=== PATIENT | female | born 1990 | race Caucasian/White ===

== ENCOUNTER → 2019-02-22 | Outpatient (CLI) | payer BC ==
[2019-02-22 20:18] VITALS: BP 110/64; PULSE 77; RESP 16; TEMP 98.1
--- NOTE | 2019-02-23 06:53 | P.MSEPDOC ---
Presenting Problems - Arrival Data Date of Arrival on Unit: 02/22/19 Time of Arrival on Unit: 18:36 Mode of Transport: Ambulatory - Complaint OB-Reason for Admission/Chief Complaint: Pain Comment: pt states reason for visit is was at work at [employer] for about 2 hours when. she started having constant cramping pain center of abdomen. pain rates 7-8 when. standing and while lying down rates at 2-3 Medical History - Information : 1 Para: 0 Term: 0 : 0 Abortions: Spontaneous or Elective: 0 Number of Living Children: 0 - Gestational Age Gestational Age by JUANJO (wks/days): 20 Weeks and 2 Days Review of Systems - Review of Systems Constitutional: No problems Breast: No problems ENT: No problems Cardiovascular: No problems Respiratory: No problems Gastrointestinal: No problems Genitourinary: No problems Musculoskeletal: No problems Neurological: No problems Skin: No problems Vital Signs - Temperature Temperature: 98.1 F Temperature Source: Oral - Pulse Right Pulse Rate: 77 - Respirations Respiratory Rate: 16 Oxygen Delivery Method: Room Air - Blood Pressure Right Arm Blood Pressure: 110/64 Blood Pressure Mean: 79 Blood Pressure Source: Automatic Cuff Medical Screen Scoring (Pre) - Cervical Exam Dilation: 0 cm = 0 Membranes: Intact - Uterine Contractions Frequency: N/A Duration: N/A Intensity: N/A - Maternal Vital Signs Maternal Temperature: N/A Maternal Blood Pressure: N/A Signs of Preeclampsia: N/A Maternal Respirations: N/A - Maternal Trauma Maternal Trauma: N/A - Assessment - Baby A Baseline FHR: 145 Heart Rate - NICHD Category: Category I (Normal) = 0 Position: N/A Station: N/A - Total Score - Baby A Total Score - Baby A: 0 - Total Score - Baby B Total Score - Baby B: 0 - Total Score - Baby C Total Score - Baby C: 0 - Level of Risk - Baby A Level of Risk - Baby A: Low (0-5) - Level of Risk - Baby B Level of Risk - Baby B: Low (0-5) - Level of Risk - Baby C Level of Risk - Baby C: Low (0-5) - Pain Assessment Pain Location and Character: Lower, Medial, Abdomen Pain Scale Used: Numeric (1 - 10) Pain Intensity: 3 Pain Management Goal: 0 Pain Description: Aching Pain Radiation Location: none Pain Frequency: Constant Pain Duration: 4 Pain Duration Units: Hours Pain Behavior: None Exhibited Physician Notification (Pre) - Physician Notified Physician Notified Date: 02/22/19 - Notification Comment Comment: 194 Dr sorto updated pts reason for visit of cramping lower center abd. no. urinary symptoms. fhr 145 no decels noted. abd soft non tender to palpation. pt states. pain is bad when standing but better when see rests. order for vag exam and discharge if. cervix closed received. cervix closed upon exam Disposition - Disposition OB Disposition: Discharge to home Discharge Date: 02/22/19 Discharge Time: 19:00 I agree with the RN Medical Screening Exam: Yes Risk & Benefit of care provided described in d/c instruction: Yes Diagnosis: PAIN, UNSPECIFIED
== END | disposition home or self-care (01) ==
LOC: FBPOP 18:36
PROVIDERS: ATTEND Obstetrics & Gynecology
DX: O99.89 Other specified diseases and conditions complicating pregnancy, childbirth and the puerperium (principal); R52 Pain, unspecified; Z3A.20 20 weeks gestation of pregnancy
CPT/HCPCS: 99213

== ENCOUNTER 2019-07-10 16:59 | Inpatient (IN) | payer OTHER ==
--- NOTE | 2019-07-19 17:24 | P.HPOB ---
History of Present Illness H&P Date: 07/19/19 Chief Complaint: Intrauterine at 41 weeks Yolanda is a 28-year-old at 41 weeks 2 days' gestation arise for induction of labor. She originally had been scheduled for cervical ripening but her on last exam her cervix was dilated to 1 cm and 80% effaced. She is therefore scheduled for induction of labor for same. She is aware of risks of failure and potential need for section during an induction procedure. She has been having nonstress tests and ultrasounds past 40 weeks to verify that there is no concerns with the baby during this time. All questions were answered for and she is stable for this procedure. We'll have Pitocin augmentation of labor and anticipate amniotomy. Her Precis course otherwise was unremarkable and she is well this time. Past Medical History Past Medical History: No Reported History History of Any Multi-Drug Resistant Organisms: None Reported Past Surgical History: Adenoidectomy, Tonsillectomy Smoking Status: Current every day smoker Medications and Allergies Home Medications Medication Instructions Recorded Confirmed Type No Known Home Medications 02/22/19 02/22/19 History Allergies Allergy/AdvReac Type Severity Reaction Status Date / Time pseudoephedrine Allergy Rash/Hives Verified 02/22/19 19:39 Exam Osteopathic Statement: *. No significant issues noted on an osteopathic structural exam other than those noted in the History and Physical/Consult. - OBG Physical Exam Breast: both: normal (no masses) Abdomen: bowel sounds normal, no diffuse tenderness, no bruit present, no guarding noted, no hepatomegaly, no splenomegaly, no mass Vulva: both: normal Vagina: normal moisture, no discharge Cervix: no lesion, no discharge Uterus: normal size, normal contour Adnexa: both: normal Anus/Rectum: normal perianal skin, no rectal mass, no hemorrhoids, heme negative
[2019-07-20] MEDS ORDERED: METHYLERGONOVINE 0.2 MG/ML 1 ML AMP IM PRN (06:58)
[2019-07-20] MEDS ORDERED: TERBUTALINE 1 MG/ML VIAL SQ PRN (06:58)
[2019-07-20] MEDS ORDERED: OXYTOCIN 10 UNIT/ML 1 ML VIAL IM PRN (06:58)
[2019-07-20] MEDS ORDERED: CARBOPROST TROMETHAMINE 250 MCG/ML 1 ML AMP IM PRN (06:58)
[2019-07-20] MEDS ORDERED: LIDOCAINE 0.5% (PF) 5 MG/ML (50 ML SDV) SQ PRN (06:58)
[2019-07-20] MEDS: LACTATED RINGERS 1,000 ML IV SCH ×3 (07:24→11:26)
[2019-07-20] MEDS: OXYTOCIN 30 UNITS/500 ML NS 30 UNIT in SALINE 1 500ML.BAG IV SCH (07:25)
[2019-07-20 09:09] LABS: Basophils % (A) 0 %; Eosinophils # (A) 0.1 k/uL (0-0.7); Eosinophils % (A) 1 %; HCT 39.4 % (34.0-46.0); HGB 13.8 gm/dL (11.4-16.0); Lymphocytes # (A) 1.3 k/uL (1.0-4.8); Lymphocytes % (A) 6 %; MCHC 34.9 g/dL (31.0-37.0); MCV 91.8 fL (80.0-100.0); Mean Platelet Volume 8.1; Monocytes # (A) 0.7 k/uL (0-1.0); Monocytes % (A) 4 %; Neutrophils # (A) 18.2 k/uL (1.3-7.7); Neutrophils % (A) 89 %; Platelet Count 266 k/uL (150-450); RBC 4.29 m/uL (3.80-5.40); RDW 13.2 % (11.5-15.5); WBC 20.4 k/uL (3.8-10.6)
[2019-07-20] MEDS ORDERED: ROPIVACAINE 100 MG, fentaNYL (PF) 200 MCG in SODIUM CHLORIDE 0.9% 76 ML EPIDURAL ONE (11:39)
[2019-07-20] MEDS ORDERED: CITRIC ACID-SODIUM CITRATE 15 ML CUP PO ONE (16:29)
[2019-07-20] MEDS ORDERED: MIDAZOLAM 2 MG/2 ML VIAL ONE (16:40)
[2019-07-20] MEDS ORDERED: KETOROLAC 30 MG/ML 1 ML VIAL ONE (16:40)
[2019-07-20] MEDS ORDERED: MORPHINE SULFATE (PF) 0.3 MG/0.3 ML SYR ONE (16:40)
[2019-07-20] MEDS ORDERED: fentaNYL (PF) 50 MCG/ML 2 ML AMP ONE (16:40)
[2019-07-20] MEDS ORDERED: ONDANSETRON 4 MG/2 ML VIAL ONE (16:40)
[2019-07-20] MEDS ORDERED: OXYTOCIN 10 UNIT/ML 1 ML VIAL ONE (16:40)
[2019-07-20] MEDS ORDERED: ONDANSETRON 4 MG/2 ML VIAL IVP PRN ×2 (17:12→17:41)
[2019-07-20] MEDS ORDERED: KETOROLAC 30 MG/ML 1 ML VIAL IVP PRN (17:12)
[2019-07-20] MEDS ORDERED: MORPHINE SULFATE 2 MG/ML SYRINGE IVP PRN (17:12)
[2019-07-20] MEDS ORDERED: diphenhydrAMINE 50 MG/ML 1 ML VIAL IVP PRN ×3 (17:12→17:41)
[2019-07-20] MEDS ORDERED: NALOXONE 0.4 MG/ML 1 ML VIAL IV PRN ×2 (17:12→17:41)
[2019-07-20] MEDS ORDERED: NALBUPHINE 10 MG/ML (1 ML AMP) IV PRN (17:12)
[2019-07-20] MEDS ORDERED: ACETAMINOPHEN TAB 325 MG TAB PO PRN (17:41)
[2019-07-20] MEDS ORDERED: diphenhydrAMINE 25 MG CAP PO PRN (17:41)
[2019-07-20] MEDS ORDERED: METOCLOPRAMIDE 5 MG/ML 2 ML VIAL IVP PRN (17:41)
[2019-07-20] MEDS ORDERED: ZOLPIDEM 5 MG TAB PO PRN (17:41)
[2019-07-20] MEDS ORDERED: SIMETHICONE 80 MG CHEWABLE PO PRN (17:41)
[2019-07-20] MEDS ORDERED: diphenhydrAMINE 50 MG CAP PO PRN (17:41)
--- NOTE | 2019-07-20 17:51 | P.OP ---
Date of Procedure: 07/20/19 Preoperative Diagnosis: Intrauterine with category 2 tracing remote from delivery Postoperative Diagnosis: Same with malodorous fluid noted at time of delivery Procedure(s) Performed: Primary low transverse section Anesthesia: epidural Surgeon: Shayan Parsons Side Seam Envelope Machine Operator #1: Yohan Mitchell Estimated Blood Loss (ml): 600 IV fluids (ml): 1,000 Urine output (ml): 200 Pathology: other (Placenta) Condition: stable Disposition: floor Operative Findings: Female scores of 7 and 9 at one and 5 minutes respectively and the weight was 7 lbs. 10 oz. Throughout the day, while Pitocin was running unit very low amounts the baby was not tolerating it and having very some variable and some late decelerations. Repeat variability was otherwise normal and there was no tachycardia or bradycardia and otherwise the heart tracing was unremarkable. Pitocin was stopped for number of hours following epidural placement and baby at that time had a category 1 tracing once the Pitocin was restarted again the baby began having decelerations that were variable with some intermittent late decelerations then trending towards more late decelerations so Pitocin was again discontinued and after discussion with the patient and her spouse a decision to move forward with a primary serous was made due to remote from delivery and category 2 tracing with some late decelerations noted despite repositioning and other techniques to help decrease the late decelerations. It is noted that she believes she had spontaneous rupture membranes at approximately 6:30 this morning there was scant fluid 1 week examined her so I did do an amniotomy and could feel membranes with clear fluid that was nonodorous noted at the time of this exam. Throughout the day we did not note any malodorous Carmella and the baby did not show any signs or symptoms tachycardia mother had no signs or symptoms of Tachycardia nor wish afebrile. Description of Procedure: Patient was taken to the operating suite where a epidural Allis anesthetic was found be adequate. She was prepped and draped in normal sterile fashion and placed in the dorsal supine position with leftward tilt. Initially a Pfannenstiel skin incision was made and this incision was then carried through to the underlying layer of the fascia with the second knife. Fascia was then nicked in the midline and this opening was extended laterally with Steel scissors. Superior and inferior aspect of this incision were then grasped tented up and bluntly and sharply dissected off the rectus muscles. Rectus muscles were then divided in the midline and blunt dissection through the peritoneum was made. This opening was then extended superiorly and inferiorly with good visualization of both bowel bladder. Bladder blade was then placed and the bladder flap identified. It was entered with Metzenbaums pump scissors and this opening was extended across face uterus. Knife was then used to incise the uterus and this incision was fully developed hemostat in immediately we noted a malodorous odor coming from the uterine cavity there was minimal to no amniotic fluid at this point. The incision was then bluntly extended and head was atraumatically delivered from right occiput transverse position. Mouth nares were then bulb suctioned anterior posterior shoulders were easily delivered followed by the remainder the baby. Umbilical cord was then clamped cut usual fashion with nursery personnel present to assume care. Baby was then taken to special care nursery where score for EMILY 7 and 9 and no other gross signs or symptoms of infection were noted. Uterus was then exteriorized and cleared of clots debris following delivery of the placenta. Uterus was then closed in 2 layers with 0 Vicryl suture. Blood and debris was suctioned posterior cul-de-sac and the uterus was reinserted into the abdomen. Peritoneal layer was closed with 0 Vicryl suture. Fascial layer was closed with 0 Vicryl suture. One layer of 3-0 Vicryl was placed in the deep subcuticular tissues to reapproximate the skin. Skin was then closed with 3-0 Vicryl subcuticularly. Sponge, lap, needle counts were all correct 2 patient was then taken to the recovery room in stable and satisfactory condition. We'll plan to continue IV antibody at least for 2 more doses and repeat CBC in the morning. Her CBC this morning was noted have a mildly elevated blood but blood cell count of 20 which is only mildly elevated for someone in labor.
[2019-07-20] MEDS: SENNOSIDES-DOCUSATE SODIUM 1 EACH TAB PO SCH (23:03)
[2019-07-20] MEDS: KETOROLAC 30 MG/ML 1 ML VIAL IVP PRN (23:09)
[2019-07-21] MEDS: LACTATED RINGERS 1,000 ML IV SCH ×2 (06:13→06:14)
[2019-07-21] MEDS: OXYTOCIN 30 UNITS/500 ML NS 30 UNIT in SALINE 1 500ML.BAG IV SCH (07:04)
[2019-07-21 08:16] LABS: Basophils % (A) 0 %; Eosinophils # (A) 0.1 k/uL (0-0.7); Eosinophils % (A) 0 %; HCT 34.6 % (34.0-46.0); HGB 11.8 gm/dL (11.4-16.0); Lymphocytes # (A) 1.1 k/uL (1.0-4.8); Lymphocytes % (A) 4 %; MCH 31.1 pg (25.0-35.0); MCV 91.7 fL (80.0-100.0); Mean Platelet Volume 7.7; Monocytes # (A) 0.7 k/uL (0-1.0); Monocytes % (A) 3 %; Neutrophils # (A) 24.1 k/uL (1.3-7.7); Neutrophils % (A) 92 %; Platelet Count 227 k/uL (150-450); RBC 3.77 m/uL (3.80-5.40); RDW 13.2 % (11.5-15.5); WBC 26.1 k/uL (3.8-10.6)
[2019-07-21] MEDS ORDERED: GENTAMICIN 80 MG in SODIUM CHLORIDE 0.9% 100 ML IVPB ONE (09:27)
--- NOTE | 2019-07-21 09:30 | P.PNOBGPC ---
Subjective - Subjective Principal diagnosis: Postop day 1 Interval history: Overall Yolanda section doing very well. She is involuting, voiding and tolerating her diet. She is requesting regular diet at this time. We'll advance diet. In speaking with her this morning she relates that after thinking about it she may have actually been leaking for a couple of days prior to presentation to labor and delivery for her induction. This might explain the suspected infection in the intrauterine cavity as she was not ruptured for very long her leaking for less than 10 hour should not have resulted in a significant infection. Baby is in special care nursery on antibiotics. While she has no fever and her vital signs are stable and afebrile febrile, will add antibiotics at least for another 24 hours and likely send her home on antibiotics as precaution. This is predominantly due to the strong odor as well as the increase in her white blood cell count 26 this morning. We'll repeat CBC in the morning as well. All questions are answered for this treatment plan was discussed with her in detail and she understands our concerns. Objective - Vital Signs Latest vital signs: Vital Signs Temp Pulse Resp BP Pulse Ox 07/21/19 06:00 16 07/21/19 04:00 98.0 F 87 16 110/62 98 07/21/19 02:00 16 07/20/19 23:56 98.8 F 96 16 114/68 96 07/20/19 23:55 16 07/20/19 22:00 16 96 07/20/19 20:03 18 97 07/20/19 19:34 98.7 F 90 20 127/73 97 07/20/19 19:04 92 20 129/74 96 07/20/19 18:34 100 20 130/76 07/20/19 18:19 98.5 F 86 20 123/71 97 07/20/19 18:13 91 20 120/72 97 07/20/19 18:04 91 20 120/72 98 07/20/19 17:51 98.3 F 108 H 20 129/76 07/20/19 17:49 102 H 20 133/75 07/20/19 17:34 98.3 F 108 H 20 129/76 07/20/19 17:13 97 Intake and Output 07/20/19 07/21/19 07/21/19 22:59 06:59 14:59 Intake Total 100 Output Total 1500 1600 Balance -1500 -1500 Intake: Intake, IV Titration 100 Amount ceFAZolin 2 gm In Sodium 100 Chloride 0.9% 50 ml @ 100 mls/hr IVPB Q8HR PENDING SALE TO [facility] Rx# :[id number] Output: Urine 1500 1600 Uretheral ([place]) 300 200 Other: Voiding Method Indwelling Catheter # Voids 0 - Exam Lungs: bilateral: normal Chest: Normal S1, Normal S2 Extremities: Present: normal Abdomen: Present: normal appearance, soft. Absent: distention, tenderness Incision: Present: normal, dry, intact Uterus: Present: normal, firm - Labs Labs: Abnormal Lab Results - Last 24 Hours (Table) 07/21/19 Range/Units 07:35 WBC 26.1 H (3.8-10.6) k/uL RBC 3.77 L (3.80-5.40) m/uL Neutrophils # 24.1 H (1.3-7.7) k/uL
[2019-07-21] MEDS ORDERED: GENTAMICIN PER PHARMACY MISCELLANE PRN (09:55)
[2019-07-21] MEDS ORDERED: GENTAMICIN 120 MG in SODIUM CHLORIDE 0.9% 100 ML IVPB ONE (10:00)
[2019-07-21] MEDS: KETOROLAC 30 MG/ML 1 ML VIAL IVP PRN (10:36)
[2019-07-21] MEDS: SENNOSIDES-DOCUSATE SODIUM 1 EACH TAB PO SCH ×2 (10:37→20:08)
[2019-07-21 10:52] LABS: African American GFR (CKD) >90 (>60 ml/min/1.73 sqM); Non-African American GFR(CKD) >90 (>60 ml/min/1.73 sqM)
--- NOTE | 2019-07-21 13:01 | P.PN ---
Progress Note - Text Progress Note Date: 07/21/19 Postoperative day 1 status post section under epidural anesthesia, and epidural morphine given for postoperative analgesia, patient doing well, there is no anesthesia related complications, Patient had no headache, vital signs stable , Assessment and plan= postop day 1 status post , doing well there is no anesthesia related complication.
[2019-07-21] MEDS: CLINDAMYCIN 900 MG in DEXTROSE 5% IN WATER 50 ML IVPB SCH ×2 (17:43)
[2019-07-21] MEDS: HYDROcodone/APAP 7.5-325MG 1 EACH TAB PO PRN (18:16)
[2019-07-21] MEDS: GENTAMICIN 120 MG in SODIUM CHLORIDE 0.9% 100 ML IVPB SCH (19:58)
[2019-07-22] MEDS: CLINDAMYCIN 900 MG in DEXTROSE 5% IN WATER 50 ML IVPB SCH ×6 (00:15→16:21)
[2019-07-22] MEDS: HYDROcodone/APAP 7.5-325MG 1 EACH TAB PO PRN (00:18)
[2019-07-22] MEDS: GENTAMICIN 120 MG in SODIUM CHLORIDE 0.9% 100 ML IVPB SCH ×3 (03:22→19:21)
[2019-07-22] MEDS: IBUPROFEN 600 MG TAB PO PRN ×2 (08:04→17:00)
[2019-07-22] MEDS: SENNOSIDES-DOCUSATE SODIUM 1 EACH TAB PO SCH ×2 (08:04→22:51)
--- NOTE | 2019-07-22 08:22 | P.PNOBGPC ---
Subjective - Subjective Principal diagnosis: Postoperative day 2, leukocytosis Interval history: Yolanda is doing very well this morning. She is ambulating, voiding and tolerating her diet. A CBC is pending. We'll plan to continue IV antibiotics at least into today and if she can [place] have no fever and the white blood cell count come down may switch her over to oral antibiotics. All of the questions are answered for this time. Baby appear stable in the special care nursery. Her vital signs are stable and she is and has continued to be afebrile. Heart regular, lungs clear, extremities are without pain. Abdomen is soft and she has bowel sounds. Incision is otherwise clean dry and intact. Assessment postop day 2. Plan continue current care Patient reports: Reports appetite normal, Reports voiding normally, Reports pain well controlled, Reports ambulating normally : in NICU Objective - Vital Signs Latest vital signs: Vital Signs Temp Pulse Resp BP Pulse Ox 07/22/19 00:00 98.6 F 89 16 110/66 97 07/21/19 16:00 98.3 F 85 18 116/67 98 07/21/19 12:00 97.5 F L 83 16 113/58 97 07/21/19 10:00 18 Intake and Output 07/21/19 07/22/19 07/22/19 22:59 06:59 14:59 Intake Total 100 150 Balance 100 150 Intake: Intake, IV Titration 100 150 Amount Clindamycin 900 mg In 50 Dextrose 5% in Water 50 ml @ 50 mls/hr IVPB Q8HR [facility] Rx#:[id number] Gentamicin 120 mg In 100 100 Sodium Chloride 0.9% 100 ml @ 103 mls/hr IVPB Q8H [facility] Rx#:[id number] Other: # Voids 2 - Exam Lungs: bilateral: normal Chest: Normal S1, Normal S2 Extremities: Present: normal Abdomen: Present: normal appearance, soft. Absent: distention, tenderness Incision: Present: normal, dry, intact Uterus: Present: normal, firm
[2019-07-22] MEDS ORDERED: GENTAMICIN TROUGH DUE 1 EACH MISC MISCELLANE ONE (10:30)
[2019-07-22 10:49] LABS: Basophils % (A) 0 %; Eosinophils # (A) 0.2 k/uL (0-0.7); Eosinophils % (A) 1 %; HCT 34.5 % (34.0-46.0); HGB 11.3 gm/dL (11.4-16.0); Lymphocytes # (A) 1.4 k/uL (1.0-4.8); Lymphocytes % (A) 6 %; MCH 30.4 pg (25.0-35.0); MCHC 32.6 g/dL (31.0-37.0); MCV 93.1 fL (80.0-100.0); Mean Platelet Volume 7.7; Monocytes # (A) 0.9 k/uL (0-1.0); Monocytes % (A) 4 %; Neutrophils # (A) 19.8 k/uL (1.3-7.7); Neutrophils % (A) 88 %; Platelet Count 221 k/uL (150-450); RBC 3.71 m/uL (3.80-5.40); RDW 13.1 % (11.5-15.5); WBC 22.6 k/uL (3.8-10.6)
[2019-07-22] MEDS ORDERED: GENTAMICIN PEAK DUE 1 EACH MISC MISCELLANE ONE (13:00)
[2019-07-22] MEDS: LACTATED RINGERS 1,000 ML IV SCH ×2 (20:55→20:56)
[2019-07-23] MEDS: IBUPROFEN 600 MG TAB PO PRN ×4 (00:01→22:56)
[2019-07-23] MEDS: CLINDAMYCIN 900 MG in DEXTROSE 5% IN WATER 50 ML IVPB SCH ×2 (00:01)
--- NOTE | 2019-07-23 09:59 | P.PNOBGPC ---
Subjective - Subjective Principal diagnosis: S/P 1*LTCS POD #3 Interval history: Pt had a course of clinda and gent IV. I will change to oral clindamycin today. She is afebrile. Will check a cbc tomorrow. SHe is tired but feeling well. Patient reports: Reports appetite normal, Reports voiding normally, Reports pain well controlled, Reports ambulating normally Objective - Vital Signs Latest vital signs: Vital Signs Temp Pulse Resp BP Pulse Ox 07/23/19 08:00 98.7 F 79 15 114/63 96 07/22/19 23:20 98.5 F 78 16 119/76 96 07/22/19 16:00 99.1 F 99 16 119/71 Intake and Output 07/22/19 07/23/19 07/23/19 22:59 06:59 14:59 Other: # Voids 2 - Exam Lungs: bilateral: normal Chest: Normal S1, Normal S2 Extremities: Present: normal Abdomen: Present: normal appearance, soft. Absent: distention, tenderness Incision: Present: normal, dry, intact Uterus: Present: normal, firm, tenderness - Labs Labs: Abnormal Lab Results - Last 24 Hours (Table) 07/22/19 Range/Units 10:24 WBC 22.6 H (3.8-10.6) k/uL RBC 3.71 L (3.80-5.40) m/uL Hgb 11.3 L (11.4-16.0) gm/dL Neutrophils # 19.8 H (1.3-7.7) k/uL Assessment and Plan (1) Status post primary low transverse section Current Visit: Yes Status: Acute Code(s): Z98.891 - HISTORY OF UTERINE SCAR FROM PREVIOUS SURGERY SNOMED Code(s): 060992170 Plan: 1. oral clinda 2. cbc in am
[2019-07-23] MEDS: SENNOSIDES-DOCUSATE SODIUM 1 EACH TAB PO SCH ×2 (10:02→22:57)
[2019-07-23] MEDS: CLINDAMYCIN 150 MG CAP PO SCH ×3 (10:03→23:27)
[2019-07-24 06:53] LABS: Basophils % (A) 0 %; Eosinophils # (A) 0.4 k/uL (0-0.7); Eosinophils % (A) 4 %; HCT 35.9 % (34.0-46.0); Lymphocytes # (A) 1.6 k/uL (1.0-4.8); Lymphocytes % (A) 15 %; MCH 31.3 pg (25.0-35.0); MCHC 33.5 g/dL (31.0-37.0); MCV 93.6 fL (80.0-100.0); Mean Platelet Volume 7.8; Monocytes # (A) 0.6 k/uL (0-1.0); Monocytes % (A) 6 %; Neutrophils # (A) 8.2 k/uL (1.3-7.7); Neutrophils % (A) 75 %; Platelet Count 326 k/uL (150-450); RBC 3.84 m/uL (3.80-5.40); RDW 12.8 % (11.5-15.5)
[2019-07-24] MEDS: SENNOSIDES-DOCUSATE SODIUM 1 EACH TAB PO SCH ×2 (07:43→19:42)
[2019-07-24] MEDS: IBUPROFEN 600 MG TAB PO PRN ×2 (07:43→19:42)
[2019-07-24] MEDS: CLINDAMYCIN 150 MG CAP PO SCH ×3 (08:38→22:13)
--- NOTE | 2019-07-24 09:50 | P.PNOBGPC ---
Subjective - Subjective Principal diagnosis: S/P 1*LTCS POD #4 Interval history: Patient seen and examined. Denies nausea, vomiting, chest pain, shortness of breath or calf pain. She is still very tender over her fundus. Her bleeding is not excessive. Her white count is still elevated though she is afebrile. Patient reports: Reports appetite normal, Reports voiding normally, Reports pain well controlled, Reports ambulating normally Objective - Vital Signs Latest vital signs: Vital Signs Temp Pulse Resp BP Pulse Ox 07/24/19 08:00 97.6 F 63 16 112/58 98 07/24/19 00:00 98.1 F 75 16 129/82 07/23/19 16:00 97.9 F 60 16 110/74 96 Intake and Output 07/23/19 07/24/19 07/24/19 22:59 06:59 14:59 Other: Voiding Method Indwelling Catheter - Exam Lungs: bilateral: normal Chest: Normal S1, Normal S2 Extremities: Present: normal Abdomen: Present: normal appearance, soft. Absent: distention, tenderness Incision: Present: normal, dry, intact Uterus: Present: firm, tenderness - Labs Labs: Abnormal Lab Results - Last 24 Hours (Table) 07/24/19 Range/Units 06:04 WBC 11.0 H (3.8-10.6) k/uL Neutrophils # 8.2 H (1.3-7.7) k/uL Assessment and Plan (1) Status post primary low transverse section Current Visit: Yes Status: Acute Code(s): Z98.891 - HISTORY OF UTERINE SCAR FROM PREVIOUS SURGERY SNOMED Code(s): 931256592 (2) endometritis Current Visit: Yes Status: Acute Code(s): O86.12 - ENDOMETRITIS FOLLOWING DELIVERY SNOMED Code(s): 38612921 Plan: 1. Continue oral clindamycin 2. Due to the patient's continued elevated white count and the tenderness over her fundus would like to keep her for 1 more day for observation. We will recheck CBC in the morning.
[2019-07-25 00:12] VITALS: RESP 16
[2019-07-25] MEDS: IBUPROFEN 600 MG TAB PO PRN (06:00)
[2019-07-25 07:35] LABS: HCT 33.4 % (34.0-46.0); MCH 30.4 pg (25.0-35.0); MCHC 32.9 g/dL (31.0-37.0); MCV 92.3 fL (80.0-100.0); Mean Platelet Volume 7.3; Platelet Count 314 k/uL (150-450); RBC 3.61 m/uL (3.80-5.40); RDW 12.8 % (11.5-15.5); WBC 11.2 k/uL (3.8-10.6)
--- NOTE | 2019-07-25 09:12 | P.DS ---
Providers Date of admission: 07/20/19 06:45 Expected date of discharge: 07/25/19 Attending physician: Shayan Parsons Primary care physician: Stated None Hospital Course: Yolanda is doing much better today. She is involuting, voiding and tolerating her diet. She is afebrile and her white count is returned to near normal. Her vital signs are otherwise stable. All questions are answered for her and her pain is better tolerated today. Prescription for pain medication and Cleocin for the next 3 days to finish out a weeks worth of Cleocin provided. All questions are answered for her. Discharge instructions were thoroughly reviewed and all questions were answered for her prior to discharge. She is aware should she have any high temperatures heavy bleeding, or severe pain she needs to notify our office or report to the emergency room. Otherwise she will limit her stairs, and no heavy lifting pelvic rest and no driving. Other discharge instructions were ALSO provided. On physical exam vital signs are stable and afebrile. Heart regular, lungs clear, extremities without pain. Abdomen is soft uterus is firm and lochia is reported light. Her incision is otherwise clean dry and intact. Assessment postop day 5. Plan discharged home follow up with me in 1 week. Patient Condition at Discharge: Good Plan - Discharge Summary New Discharge Prescriptions: New Ibuprofen [Motrin] 600 mg PO Q6HR PRN #30 tab PRN Reason: Pain HYDROcodone/APAP 5-325MG [[place] 5-325] 1 tab PO Q4HR PRN #30 tab PRN Reason: Pain Clindamycin HCl [Cleocin] 300 mg PO Q8H #10 cap No Action Pnv No.95/Ferrous Fum/Folic AC [ Multivitamin Tablet] 1 tab PO DAILY Discharge Medication List Pnv No.95/Ferrous Fum/Folic AC [ Multivitamin Tablet] 1 tab PO DAILY 07/20/19 [History] Clindamycin HCl [Cleocin] 300 mg PO Q8H #10 cap 07/25/19 [Rx] HYDROcodone/APAP 5-325MG [[place] 5-325] 1 tab PO Q4HR PRN #30 tab 07/25/19 [Rx] Ibuprofen [Motrin] 600 mg PO Q6HR PRN #30 tab 07/25/19 [Rx] Follow up Appointment(s)/Referral(s): Kuester,Shayan, DO [Doctor of Osteopathic Medicine] - 1 Week Activity/Diet/Wound Care/Special Instructions: no heavy lifting, limit stairs and driving, and pelvic rest. If any high temperatures, heavy bleeding, or severe pain call my office Discharge Disposition: HOME SELF-CARE
[2019-07-25] MEDS: CLINDAMYCIN 150 MG CAP PO SCH ×2 (09:52→18:39)
[2019-07-25] MEDS: SENNOSIDES-DOCUSATE SODIUM 1 EACH TAB PO SCH (09:52)
[2019-07-25 15:10] VITALS: BP 122/74; PULSE 76; TEMP 97.7
== END 2019-07-25 18:45 | disposition home or self-care (01) | DRG 787 ==
LOC: 4FBP 07-20 06:45
PROVIDERS: ADMIT Obstetrics & Gynecology; ATTEND Obstetrics & Gynecology
PROC: 3E0P7VZ Introduction of Hormone into Female Reproductive, Via Natural or Artificial Opening (ICD-10-PCS; 2019-07-20)
PROC: 10D00Z1 Extraction of Products of Conception, Low, Open Approach (ICD-10-PCS; principal; 2019-07-20 16:40)
DX: O48.0 Post-term pregnancy (principal); O86.12 Endometritis following delivery; O76 Abnormality in fetal heart rate and rhythm complicating labor and delivery; O99.334 Smoking (tobacco) complicating childbirth; F17.200 Nicotine dependence, unspecified, uncomplicated; Z37.0 Single live birth; Z3A.41 41 weeks gestation of pregnancy; Z88.8 Allergy status to other drugs, medicaments and biological substances
CPT/HCPCS: 80170; 82565; 85025; 85027; 86850; 86900; 86901; 88307

== ENCOUNTER 2019-07-18 17:16 | Outpatient (CLI) | payer OTHER ==
[2019-07-18 18:59] VITALS: BP 123/88; PULSE 83; RESP 18; TEMP 98.1
--- NOTE | 2019-07-20 18:40 | P.MSEPDOC ---
Presenting Problems - Arrival Data Date of Arrival on Unit: 07/18/19 Time of Arrival on Unit: 17:10 Mode of Transport: Ambulatory - Complaint OB-Reason for Admission/Chief Complaint: Possible Onset of Labor Medical History - Information : 2 Para: 0 Term: 0 : 0 Abortions: Spontaneous or Elective: 0 Number of Living Children: 0 - Gestational Age Gestational Age by JUANJO (wks/days): 41 Weeks and 1 Days Review of Systems - Review of Systems Constitutional: No problems Breast: No problems ENT: No problems Cardiovascular: No problems Respiratory: No problems Gastrointestinal: No problems Genitourinary: No problems Musculoskeletal: No problems Neurological: No problems Skin: No problems Vital Signs - Temperature Temperature: 98.1 F Temperature Source: Oral - Pulse Right Sitting Brachial Pulse Rate: 83 Pulse Assessment Method: Automatic Cuff - Respirations Respiratory Rate: 18 Oxygen Delivery Method: Room Air - Blood Pressure Right Arm Sitting Blood Pressure: 123/88 Blood Pressure Mean: 99 Blood Pressure Source: Automatic Cuff Medical Screen Scoring (Pre) - Cervical Exam Dilation: 1-3 cm = 1 Effacement: More than 50% = 2 Membranes: Intact - Uterine Contractions Frequency: > 5 minutes apart = 1, > or = 36 weeks =2 Duration: > 40 seconds = 2 Intensity: N/A - Maternal Vital Signs Maternal Temperature: N/A Maternal Blood Pressure: N/A Signs of Preeclampsia: N/A Maternal Respirations: N/A - Maternal Trauma Maternal Trauma: N/A - Assessment - Baby A Baseline FHR: 115 Heart Rate - NICHD Category: Category I (Normal) = 0 NST: Reactive Position: N/A Station: N/A - Total Score - Baby A Total Score - Baby A: 8 - Total Score - Baby B Total Score - Baby B: 8 - Total Score - Baby C Total Score - Baby C: 8 - Level of Risk - Baby A Level of Risk - Baby A: Medium (6-9) - Level of Risk - Baby B Level of Risk - Baby B: Medium (6-9) - Level of Risk - Baby C Level of Risk - Baby C: Medium (6-9) Physician Notification (Pre) - Physician Notified Physician Notified Date: 07/18/19 Physician Notified Time: 18:15 New Order Received: Yes - Notification Comment Comment: dc home. no cervical change in one hour. Pt scheduled for induction of labor on Thursday Disposition - Disposition OB Disposition: Discharge to home Discharge Date: 07/18/19 Discharge Time: 18:59 I agree with the RN Medical Screening Exam: Yes Risk & Benefit of care provided described in d/c instruction: Yes Diagnosis: FALSE LABOR BEFORE 37 COMPLETED WEEKS OF GEST * DO NOT USE *
== END 2019-07-18 19:00 | disposition home or self-care (01) ==
LOC: FBPOP 17:16
PROVIDERS: ATTEND Obstetrics & Gynecology
DX: O47.03 False labor before 37 completed weeks of gestation, third trimester (principal); Z3A.41 41 weeks gestation of pregnancy
CPT/HCPCS: 59025; G0463; 99213